=== PATIENT | male | born 1970 | race Caucasian/White ===

== ENCOUNTER → 2019-08-05 09:43 | Outpatient (POV) | payer BC, SELFPAY | PROVIDERS: PCP Family Medicine; Visit Provider Otolaryngology | DX: Z00.00 Encounter for general adult medical examination without abnormal findings (principal) ==

== ENCOUNTER → 2020-06-02 07:42 | Outpatient (CLI) | payer BC, SELFPAY ==
[2020-06-02 09:53] LABS: Coronavirus 19 IgG Antibody Positive (Negative); Coronavirus 19 IgM Antibody Negative (Negative)
== END ==
PROVIDERS: Visit Provider Internal Medicine Gastroenterology
DX: Z01.812 Encounter for preprocedural laboratory examination (principal); Z20.822 Contact with and (suspected) exposure to COVID-19; Z12.11 Encounter for screening for malignant neoplasm of colon
CPT/HCPCS: 36415; 86328

== ENCOUNTER 2020-06-04 07:29 | Day surgery (SDC) | payer BC, SELFPAY ==
[2020-05-27 12:08] VITALS: BMI 22.3
[2020-06-04 07:50] VITALS: BP 121/77; PULSE 51; RESP 18; TEMP 36.5; O2SAT 97
[2020-06-04 08:35] VITALS: O2SAT 97
--- NOTE | 2020-06-04 08:36 | P.PCN_ITS ---
[facility] Procedure Note Procedure Note:: Colonoscopy Procedure Report: Colonoscopy with hemorrhoid band ligation Endoscopist: Cliff Álvarez II, MD Referring physician: Eladio Lorenz MD Date of Procedure: June 04, 2020 Equipment: Olympus 190 variable stiffness pediatric colonoscope Sedation: MAC sedation Indication: Mr. Jones is a 49-year-old gentleman who has had the new onset of some rectal bleeding which only occurs every couple of weeks. This is blood can coat the outside of the stool. He suspects this to be hemorrhoidal. His mother had colorectal cancer in her early 70s. He reports no abdominal pain, weight loss or change in his bowel habits. This is his first colonoscopy (diagnostic). Procedure: Prior to the procedure, a history and physical exam was performed, and patient's medications and allergies were reviewed. The risks, benefits and alternatives of the sedation and procedure were discussed with the patient. All questions were answered and informed consent was obtained. The patient was brought to the procedure room. Patient identification and proposed procedure were verified by the physician and the nurse. The patient was placed in a left lateral decubitus position and the scope was passed under direct vision. Throughout the procedure, the patient's blood pressure, pulse, and oxygen saturations were monitored continuously. The colonoscopy was accomplished without difficulty. The patient tolerated the procedure well. Findings: On digital rectal examination there was normal rectal tone. There were no external hemorrhoids. There was some internal hemorrhoidal prolapse. The prostate was 1-2+, smooth, soft, symmetric without nodules. The colonoscope was introduced through the anal canal to the rectum and advanced to the cecum. The ileocecal valve and appendiceal orifice were identified. The scope was advanced a short distance into the ileum which appeared grossly normal. The scope was then withdrawn into the colon. The cecum, ascending, transverse, descending, sigmoid and rectum were grossly normal. There were no mucosal abnormalities identified. Upon retroflexion within the rectum there were grade 2-3 internal hemorrhoids with some prolapse.3 columns of hemorrhoids were banded using 3 bands with excellent ligation effect. The preparation was excellent throughout with [place] Preparation Score of 9. The cecal time was 12 minutes. Impression: 1. Normal colonoscopy with intubation of the terminal ileum 2. Grade 2-3 internal hemorrhoids status post band ligation x3 Plan: Based upon the patient's family history, I would recommend repeat surveillance colonoscopy again in 5 years. I would encourage bulk fiber supplementation (Konsyl powder 1 tablespoon mixed in 8 to 10 ounces of juice or water by mouth every morning) on a long-term daily maintenance basis.
[2020-06-04 09:02] VITALS: BP 108/74; PULSE 54; RESP 18; TEMP 36.4; O2SAT 98
[2020-06-04 09:12] VITALS: BP 127/80; PULSE 92; RESP 18; O2SAT 92
[2020-06-04 09:22] VITALS: BP 137/83; PULSE 48; RESP 18; O2SAT 100
[2020-06-04 09:50] VITALS: BP 148/87; PULSE 49; RESP 18; O2SAT 100
--- NOTE | 2020-06-04 09:55 | SUR.PHASEII ---
PT AND DTR OUT OF POST OP WITHOUT SIGNING DISCHARGE INSTRUCTIONS. DISCHARGE INSTRUCTIONS REVIEWED AND COPIES PROVIDED TO THEM. VERBALIZED UNDERSTANDING TO ALL INFO GIVEN BEFORE LEFT.
--- NOTE | 2020-06-04 14:57 | HMH.ANESCL ---
[facility] Anesthesia Checklist - Patient Identification Patient Identification: Arm Band - Structural Data Admitted From: Home Planned Operative Procedure/s: Colonoscopy Verified Documents: Surgical Consent, History and Physical - Neurological Assessment Level of Consciousness: Awake, Alert - Anesthesia Plan Anesthesia Plan: Verified ASA Class: II Anesthesia Type: MAC [facility] History Medical History: Denies:: Cancer, Diabetes Mellitus Type 1, Diabetes Mellitus Type 2, Internal Pacemaker, MRSA, Seizures *Have you ever received a pneumonia vaccine?: No *Have you received a flu vaccine this season?: Yes Anesthesia experience/problems:: None Other Surgeries: No: Pacemaker Amputation: No Fractures: No - *Social History Tobacco Type: smokeless tobacco Alcohol Intake: never Substance Use Type: denies use *Occupational Status:: employed Housing: house Household Members: family *Travel in the last 8 weeks: None Family Hx:: No significant family history
== END 2020-06-04 09:52 | disposition home or self-care (01) ==
LOC: OUTP 07:32
PROVIDERS: PCP Family Medicine; Visit Provider Internal Medicine Gastroenterology
PROC: 0DJD8ZZ Inspection of Lower Intestinal Tract, Via Natural or Artificial Opening Endoscopic (ICD-10-PCS; CPT 45378; principal; 2020-06-04 08:30)
DX: K62.5 Hemorrhage of anus and rectum (principal); Z80.0 Family history of malignant neoplasm of digestive organs; K64.1 Second degree hemorrhoids
CPT/HCPCS: 45398